=== PATIENT | male | born 1985 | race Two or more races ===

== ENCOUNTER 2020-02-23 08:56 | Emergency (ER) | payer SELFPAY ==
[2020-02-23 09:04] VITALS: BP 140/82; PULSE 71; PULSE 79; RESP 16; RESP 18; TEMP 36.9; O2SAT 99; BMI 31.1
--- NOTE | 2020-02-23 09:11 | ED_ITS ---
HPI - Skin/Abscess/Foreign Bdy General: Chief complaint: Skin/Abscess/Foreign Body Stated complaint: spider bite Time Seen by Provider: 02/23/20 09:04 History of Present Illness: HPI narrative: Patient is a 34-year-old male who comes to the ED with cellulitis. Patient says on Saturday he woke up and he had red rash on his left side of abdomen and appeared to be bite of some sort in middle of rash. He was unaware of any insect or spider bite. He went to an ER facility outside of the [facility] on Saturday and was given a prescription of Bactrim and told to return to ED if it gets worse. Patient has been taking Bactrim now for about 3 days. The erythema surrounding the possible bite his getting larger and more painful. He currently rates the pain around the rash about a 7 out of 10. Patient states he does have a history of staph infection. Associated symptoms: Reports chills; Deny fever(s), nausea or vomiting Review of Systems Const: Reports: chills; Denies: fever(s) or fatigue Eyes: Denies: change in vision or eye discomfort ENMT: Denies: throat pain, odynophagia, nasal discharge or nasal congestion Card: Denies: chest pain, palpitations, edema, swelling of feet/ankles, dyspnea on exertion or orthopnea Resp: Denies: dyspnea, productive cough or non-productive cough GI: Denies: abdominal pain, nausea, vomiting, diarrhea, constipation or hematochezia : Denies: flank pain, difficulty urinating, dysuria or hematuria Musc: Denies: neck pain, back pain or extremity swelling Skin/Breast: Reports: new lesions; Denies: rash Neuro: Denies: headache(s), numbness in extremities or weakness in extremities PFS ED PFSH: Social History Smoking and tobacco status: current every day smoker Alcohol intake: current Physical Exam Const: COMMON NORMALS: no acute distress, patient oriented x3 and alert GENERAL APPEARANCE: cooperative HENMT: COMMON NORMALS: normocephalic HEAD & SCALP: normocephalic MOUTH: Normal oral and palatal mucosa present THROAT: posterior oropharynx normal and uvula midline Neck/C-Spine: COMMON NORMALS: supple GENERAL: Yes normal visual inspection Resp: COMMON NORMALS: normal respiratory effort, No retractions, No use of accessory muscles and clear to auscultation bilaterally AUSCULTATION: clear to auscultation bilaterally Cardio: COMMON NORMALS: regular rate, regular rhythm, S1 normal heart sound present, S2 normal heart sound present, No gallops present (Cardio), No clicks present (Cardio), No murmurs present (Cardio) and Peripheral pulses 2+ throughout RATE: regular rate RHYTHM: regular rhythm HEART SOUNDS: S1 normal heart sound present and S2 normal heart sound present PERIPHERAL PULSES: Peripheral pulses 2+ throughout GI: COMMON NORMALS: Normal to inspection, nondistended, normoactive bowel sounds present, Soft to palpation, non-tender and no masses PALPATION: Yes Soft to palpation : COMMON NORMALS: Yes no CVA tenderness BLADDER/KIDNEY EXAM: Yes no CVA tenderness Back/Pelvis: COMMON NORMALS: no CVA tenderness Extremity: COMMON NORMALS: normal to inspection and no pedal edema Neuro: COMMON NORMALS: patient oriented x3 and moves all extremities SENSORIUM/ORIENTATION: Yes alert Skin: LESIONS: lesion noted Left side of abdomen Lesion type: Yes maculopapular and No pustule Lesion location: Left side of abdomen, just below axillary region Lesion distribution: Yes asymmetrical Lesion color: Yes erythematous, Yes red, Yes surrounding erythema and Yes other (very small ulcer seen towards middle of lesion) Lesion consistency: No fluctuent and Yes indurated Lesion surface: Yes dry, Yes flat, No draining, Yes shiny and Yes warm Lesion border: Yes smooth and Yes sharp Lesion tenderness: Yes moderate Lesion finding consistent with: Yes cellulitis Course ED course: I performed a bedside ultrasound on patient and did not see any pocket of fluid or abscess to drain. Vital Signs: Vital signs: Vital Signs Temperature 98.5 F 02/23/20 09:04 Pulse Rate 60 02/23/20 10:42 Respiratory Rate 18 02/23/20 10:42 Blood Pressure 133/83 02/23/20 10:42 Pulse Oximetry 100 02/23/20 10:42 MDM - Skin/Abscess/Foreign Bdy MDM Narrative: Medical decision making narrative: Patient is a 34-year-old male who comes into the ED with cellulitis. Patient was seen at an ED outside of the [facility] network on Saturday and put on a prescription of Bactrim. Patient has been taking Bactrim for the past 3 days and redness and tenderness redness and tenderness on skin lesion area only gotten worse. While here in the ED I performed a bedside ultrasound and did not identify any abscess to drain. I gave patient Ancef 500 mg IM and I also outlined lesion with marker. Patient was discharged and told to follow-up with ED, urgent care or PCP in the next 3 days to reevaluate lesion and to see if it has gotten bigger or smaller. I sent patient home with a prescription for Augmentin and told to take both the Bactrim and Augmentin. Patient understood and agreed with plan. Discharge Plan Discharge Patient Disposition: Home, Self-Care Clinical Impression: Cellulitis Qualifiers: Site of cellulitis: trunk Site of cellulitis of trunk: abdominal wall Qualified Code(s): L03.311 - Cellulitis of abdominal wall Condition: Stable Prescriptions: New Augmentin 500-125 mg tablet 1 tab PO BID 10 Days Qty: 20 RF: 0 No Action Bactrim DS 800-160 mg Tablet 1 tab PO BID RF: 0 Benadryl 25 mg Capsule 50 mg PO PRN RF: 0 ibuprofen 200 mg Tablet 600 mg PO PRN RF: 0 Discharge Orders: Discharge Order (Routine); Ordered 02/23/20 Ordered By: Jeovany Carrasco Referrals: Jeni Moss FNP [Family Provider] - Discharge Diet: Regular Discharge Activity: Resume usual activity Patient Instructions: Cellulitis (ED) Activity Restrictions/Additional Instructions: Return to ED, urgent care or PCP in the next 3 days for reevaluation of cellulitis. Start taking the newly prescribed Augmentin along with your previously prescribed Bactrim antibiotic. Take Tylenol for any pain or fevers. Drink plenty of fluids and stay hydrated. Stand Alone Forms: Work/School Release Discharge Date/Time: 02/23/20 10:42 Coding Level of Care Code ED [employer] Examiner for [facility] Exam Comprehensive
[2020-02-23] MEDS: acetaminophen 325 mg Tablet 650 MG PO (10:03)
[2020-02-23 10:04] VITALS: BP 124/87; PULSE 79; RESP 16; O2SAT 100
[2020-02-23] MEDS: ceFAZolin 500 MG in SYRINGE 1 EACH 100 MG IM (10:29)
[2020-02-23 10:42] VITALS: BP 133/83; PULSE 60; RESP 18; O2SAT 100
== END 2020-02-23 10:42 | disposition home or self-care (01) ==
PROVIDERS: Emergency Provider Physician Assistant; Family Provider Nurse Practitioner
DX: L03.311 Cellulitis of abdominal wall (principal); F17.210 Nicotine dependence, cigarettes, uncomplicated
CPT/HCPCS: 12345; 96372; 99281; 99283; J0690

== ENCOUNTER → 2021-10-20 18:36 | Outpatient (BNVA) | payer OTHER, SELFPAY | PROVIDERS: Family Provider Nurse Practitioner; Visit Provider Registered Nurse Neonatal Intensive Care | DX: Z20.822 Contact with and (suspected) exposure to COVID-19 (principal) | CPT/HCPCS: 87635 ==